=== PATIENT | female | born 1970 | race Caucasian/White ===

== ENCOUNTER 2016-09-12 05:38 | Inpatient (IN) | payer OTHER ==
[2016-09-12] MEDS ORDERED: Acetaminophen 500 MG Tab PO ONE (05:45)
[2016-09-12] MEDS ORDERED: cefOXitin 2 GM in Sodium Chloride 0.9% 50 ML IV ONE (06:00)
[2016-09-12] MEDS ORDERED: Dextrose 5%-Lactated Ringers 1,000 ML IV SCH (06:00)
[2016-09-12] MEDS ORDERED: Gabapentin 300 MG Cap PO ONE (06:00)
[2016-09-12] MEDS ORDERED: Scopolamine 1.5 MG Transdermal Patch TOP ONE (06:00)
[2016-09-12] MEDS ORDERED: Celecoxib 200 MG Cap PO ONE (06:00)
[2016-09-12] MEDS ORDERED: Acetaminophen 325 MG Tab PO ONE (06:00)
[2016-09-12] MEDS ORDERED: Pantoprazole 40 MG Vial IVPUSH ONE (06:00)
[2016-09-12] MEDS ORDERED: fentaNYL 250 MCG/5 ML SDV ONE ×2 (07:36→08:28)
[2016-09-12] MEDS ORDERED: Midazolam 1 MG/ML 2 ML SDV ONE (07:36)
[2016-09-12] MEDS ORDERED: ROPIVACAINE SCH ×4 (08:00)
[2016-09-12] MEDS ORDERED: FENTANYL PATCH ASK TOP SCH (08:00)
[2016-09-12] MEDS ORDERED: Lidocaine 2% 100 MG/5 ML Syringe IVPUSH ONE (08:00)
[2016-09-12] MEDS ORDERED: EPINEPHRINE SCH ×4 (08:00)
[2016-09-12] MEDS ORDERED: DEXAMETHASONE SCH ×4 (08:00)
[2016-09-12] MEDS ORDERED: SODIUM CHLORIDE 0.9% SCH ×4 (08:00)
[2016-09-12] MEDS ORDERED: Ketamine 500 MG/5 ML MDV IV ONE (08:00)
[2016-09-12] MEDS ORDERED: Succinylcholine/Normal Saline 200 MG/10 ML Syringe ONE (08:17)
[2016-09-12] MEDS ORDERED: Rocuronium 50 MG/5 ML Vial ONE ×2 (08:17→08:48)
[2016-09-12] MEDS ORDERED: Dexamethasone 4 MG/ML SDV ONE (08:17)
[2016-09-12] MEDS ORDERED: Propofol 200 MG/20 ML SDV ONE (08:17)
[2016-09-12] MEDS ORDERED: Ondansetron 4 MG/2 ML SDV ONE (08:17)
[2016-09-12] MEDS ORDERED: Neostigmine Methylsulfate 1 MG/ML 5 ML Syringe ONE (08:17)
[2016-09-12] MEDS ORDERED: Lactated Ringers 1,000 ML ONE (08:26)
[2016-09-12] MEDS ORDERED: Labetalol 20 MG/4 ML Syringe ONE (08:27)
[2016-09-12] MEDS: cefOXitin 2 GM Vial ONE ×2 (08:44→09:33)
[2016-09-12] MEDS ORDERED: hydrOXYzine HCl 50 MG/ML SDV IM ONE ×2 (10:35→12:08)
[2016-09-12] MEDS ORDERED: Insulin Aspart 100 Units/ML 3 ML Pen SUBCUT ONE (10:55)
[2016-09-12] MEDS ORDERED: fentaNYL 100 MCG/2 ML SDV IVPUSH ONE (10:59)
--- NOTE | 2016-09-12 11:08 | CR ---
Chest 1V Frontal INDICATION: PLACEMENT OF CENTRAL LINE FINDINGS: Comparison 11/07/2007. New left subclavian central line with tip near the cavoatrial junction. Shallow inspiration.
[2016-09-12] MEDS ORDERED: Meperidine PF 100 MG/ML Syringe IM ONE (12:07)
[2016-09-12] MEDS ORDERED: Naloxone 0.4 MG/ML SDV IV PRN (12:23)
[2016-09-12] MEDS ORDERED: SCOPOLAMINE PATCH CHECK TOP SCH (12:26)
[2016-09-12] MEDS ORDERED: Labetalol 20 MG/4 ML Syringe IVPUSH PRN (12:26)
[2016-09-12] MEDS ORDERED: Ondansetron 4 MG/2 ML SDV IVPUSH PRN (12:26)
[2016-09-12] MEDS ORDERED: hydrOXYzine HCl 50 MG/ML SDV IM PRN (12:26)
[2016-09-12] MEDS ORDERED: diphenhydrAMINE 50 MG/ML SDV IV PRN (12:38)
[2016-09-12] MEDS: HYDROmorphone/Normal Saline 15 MG/30 ML PCA IV SCH (12:39)
[2016-09-12] MEDS ORDERED: Metoclopramide 10 MG/2 ML SDV IV PRN (12:41)
[2016-09-12] MEDS: Lidocaine 0.4%/D5W 2 GM/500 ML BAG IV SCH (13:25)
[2016-09-12] MEDS: Gabapentin 250 MG/5 ML Solution ML 470 ML Bottle PO SCH ×2 (13:34→20:55)
[2016-09-12] MEDS ORDERED: Acetaminophen 325 MG Tab PO SCH (14:00)
[2016-09-12] MEDS: cefOXitin 2 GM in Sodium Chloride 0.9% 50 ML IV SCH ×2 (14:13→20:54)
[2016-09-12] MEDS: Acetaminophen Soln 650 MG/20.3 ML UD Cup PO SCH ×2 (14:27→20:55)
[2016-09-12] MEDS ORDERED: MVI, Adult with Vitamin K 10 ML, Thiamine 200 MG, Chromium/Copper/Mang/Selen/Zn 1 ML in... IV SCH ×4 (16:00)
[2016-09-12] MEDS: Insulin Aspart 100 Units/ML 3 ML Pen SUBCUT PRN ×2 (16:29→22:46)
[2016-09-12] MEDS: Heparin Sodium 5,000 Units/ML Vial SUBCUT SCH (18:01)
[2016-09-12] MEDS: Dextrose 5%-Lactated Ringers 1,000 ML IV SCH (20:58)
[2016-09-13] MEDS: Lidocaine 0.4%/D5W 2 GM/500 ML BAG IV SCH (01:27)
[2016-09-13] MEDS: cefOXitin 2 GM in Sodium Chloride 0.9% 50 ML IV SCH ×2 (01:27→08:38)
[2016-09-13] MEDS ORDERED: Iohexol 647 MG/ML 50 ML SDV PO SCH (02:30)
[2016-09-13] MEDS: HYDROmorphone/Normal Saline 15 MG/30 ML PCA IV SCH (03:12)
[2016-09-13] MEDS: Dextrose 5%-Lactated Ringers 1,000 ML IV SCH (04:09)
[2016-09-13] MEDS: Heparin Sodium 5,000 Units/ML Vial SUBCUT SCH (05:29)
[2016-09-13] MEDS ORDERED: Pantoprazole 40 MG Vial IVPUSH SCH (06:00)
[2016-09-13] MEDS: Gabapentin 250 MG/5 ML Solution ML 470 ML Bottle PO SCH ×2 (08:39→13:37)
[2016-09-13] MEDS: Acetaminophen Soln 650 MG/20.3 ML UD Cup PO SCH ×2 (08:40→13:38)
[2016-09-13] MEDS ORDERED: Dextrose 5%-Lactated Ringers 1,000 ML IV SCH (08:45)
--- NOTE | 2016-09-13 08:48 | CR ---
UGI wo KUB HISTORY: Eval RNY GBP FINDINGS: After administration of oral contrast, upright views were obtained. Post operative changes gastric bypass. Surgical drains in place. No evidence for leak. Contrast passes freely into proxima l small bowel loops. IMPRESSION: No evidence for leak or obstruction.
[2016-09-13] MEDS ORDERED: Hydrochlorothiazide/Triamterene 25-37.5 MG Cap PO SCH (09:00)
[2016-09-13] MEDS ORDERED: metFORMIN 500 MG Tab PO SCH (09:00)
[2016-09-13] MEDS ORDERED: Celecoxib 200 MG Cap PO SCH (09:00)
[2016-09-13] MEDS ORDERED: NORGESTIMATE PO SCH (09:00)
[2016-09-13] MEDS ORDERED: ETHINYL ESTRADIOL PO SCH (09:00)
[2016-09-13] MEDS ORDERED: Cyanocobalamin (Vitamin B12) 1,000 MCG/ML SDV IM ONE (10:00)
[2016-09-13] MEDS: Acetaminophen/oxyCODONE 325-5 MG Tab PO PRN ×2 (10:33→16:28)
[2016-09-13 11:24] VITALS: BP 142/79
[2016-09-13] MEDS ORDERED: Magnesium Hydroxide 400 MG/5 ML Susp 30 ML Cup PO ONE (14:55)
--- NOTE | 2016-09-14 12:40 | DISCH ---
ADMISSION DIAGNOSES: 1. Obesity. 2. Insomnia. 3. Hypertension. 4. Family history of alpha-1 antitrypsin deficiency. 5. Dysmenorrhea. 6. Dyslipidemia. 7. Depression. 8. Chronic migraine. 9. Chronic low back pain. 10.Maladaptive behaviors affecting medical condition. 11.Prediabetes. DISCHARGE DIAGNOSES: 1. Insertion of left subclavian triple lumen. 2. Laparoscopic gastric bypass surgery. 3. Liver biopsy. 4. Focal cauterization of the left lobe of liver. 5. Focal liver laceration, date of surgery 09/12/2016. 6. Morbid obesity. 7. Extreme hepatomegaly. 8. Inadequate peripheral vein access. HISTORY: Davin Hess is a 45-year-old female with longstanding history of morbid obesity and increasingly comorbidities. After preoperative evaluation and discussion of possible risks and possible complications, she wished to proceed with surgical procedure. HOSPITAL COURSE: Davin had her surgery on 09/13/2016. She had no operative complications. On postop day #1, her upper GI was normal. She continued with step 1 gastric bypass diet and advanced to step 2 gastric bypass diet without cereal. Her vital signs were good. Her activity was adequate. She requested to be discharged to home. She will be staying in [place]. PHYSICAL EXAMINATION: GENERAL: Davin Hess is a 45-year-old female. Height is 5 feet 4 inches. Weight is 245 pounds. VITAL SIGNS: TPR is 100.3, 112, 15. Blood pressure 142/79. HEENT: Negative. NECK: Supple. HEART: Regular rate and rhythm. LUNGS: Clear. ABDOMEN: Dressings dry and intact. SAEID drains x2, put out 190 operative day and on postop day one with a light pink serous drainage. The SAEID drains were discontinued, 4x4s were placed over SAEID drain sites and abdominal binder is on. EXTREMITIES: Without peripheral edema. DISPOSITION: Discharged to home. CONDITION: Stable and improving. FOLLOWUP APPOINTMENT: Natasha Galvin PA-C, on 09/21/2016 at 10:00 am. HOME MEDICATION: 1. Tylenol 650 mg p.o. t.i.d. liquid 100 mL. 2. Percocet 5/325 mg 1 to 2 every 4 hours p.r.n. pain #50. 3. Milk of Magnesia 30 mL, two were sent home with patient to take 1 p.o. daily if needed for constipation. Home medications are: 1. Metformin 500 mg p.o. b.i.d. 2. Dyazide 37.5/25, 2 capsules p.o. daily. 3. Zocor 20 mg at bedtime, hold until first appointment. 4. Ethinyl estradiol and norgestimate one tablet p.o. daily. 5. Lunesta 2 mg p.o. daily. DIET: Step-2 gastric bypass diet with no cereal. May start protein shakes, drink 8 to 10 glasses of water a day. ACTIVITY: As tolerated. No lifting greater than 10 pounds. Driving: Do not drive on pain medication. Shower/Bathing: May shower. Keep operative site clean and dry. Wear abdominal binder for 2 weeks and then as tolerated. Notify provider if any fever, increased pain, swelling, redness, drainage, nausea, or vomiting. SPECIAL INSTRUCTION: Use incentive spirometer 10 times every hour while awake for 2 weeks. Start taking chewable multivitamin twice daily and vitamin B12 1000 mcg sublingual once daily. Keep a record of fluid and protein intake and bring to clinic appointments. Check blood sugars once in the morning before eating and bring results to clinic appointments.
--- NOTE | 2016-09-14 14:46 | OR ---
DATE OF PROCEDURE: 09/12/2016 PREOPERATIVE DIAGNOSES: 1. Morbid obesity. 2. Inadequate peripheral venous access. POSTOPERATIVE DIAGNOSES: 1. Morbid obesity. 2. Extreme hepatomegaly with resultant focal liver laceration due to necessity to retract the liver. 3. Inadequate peripheral venous access. OPERATIVE PROCEDURE: 1. Bilateral transverse abdominis plane blocks (70361). 2. Insertion of left subclavian vein triple-lumen catheter (85346). 3. Diagnostic laparoscopy with. a. Laparoscopic Obdulia-en-Y gastric bypass with long limb gastroenterostomy (93470). b. Lisandro-Cut needle liver biopsy (86727). c. Cauterization and suture of focal liver laceration, left lobe of the liver (41939). ANESTHESIA: General. INDICATION FOR PROCEDURE: This is a 45-year-old female presenting with longstanding morbid obesity and increasingly significant comorbidities. The plan is to proceed with diagnostic laparoscopy with a gastric bypass. Potential risks of procedure including bleeding, infection, leaks from various GI tract closures, problems with bowel obstruction over time as well as possibility of cardiopulmonary, septic, or hemorrhagic complications leading to were discussed, and the patient wishes to proceed. Additionally, the patient has very limited peripheral venous access and a central line will be placed for venous access perioperatively. The potential risks of that including bleeding, infection, pneumothorax and such were likewise reviewed, and she wishes to proceed. DETAILS OF PROCEDURE: The patient was taken to the operating room and placed in a supine position. After general endotracheal anesthesia was induced, the upper chest and neck areas were prepped and draped. The left subclavian vein was cannulated, guidewire passed over the guidewire, a triple-lumen catheter was positioned. Good in and outflow was noted. Ports were flush with heparinized saline and the catheter sutured to skin with some 3-0 silk stitch. Dressing was applied. Subsequent chest x-ray showed no complications and good catheter position. The patient was now placed in a lithotomy position. Kauffman catheter was inserted. Bilateral transverse abdominis plane blocks were then placed using ultrasound guidance in subcostal position and included the combination of ropivacaine, dexamethasone, epinephrine, and sodium chloride with 40 mL being injected on each side with continued ongoing ultrasound guidance. The abdomen was then prepped and draped and the gastrointestinal balloon catheter then positioned 15 cm inferior and 5 cm to the left of the xiphoid, a transverse incision was made. The peritoneal cavity entered under direct vision with an Optiview trocar inflated to 15 mmHg pressure with CO2. Laparoscope was then reinserted. No underlying trocar insertion site injuries were seen. Following this, 5 additional trocars were placed across the upper mid abdomen and general exploration undertaken. The patient noted to have a quite striking hepatomegaly with the liver coming down almost to the level of the umbilicus on the left side. The liver was engorged and quite extremely fatty infiltrated. There were no signs of cirrhosis, however, and there was no evidence of portal hypertension. The overall findings would be typical for an obese patient with diabetes. The patient also does have one of the genetic sub-types of alpha-1 antitrypsin deficiency, and after the biopsies were obtained from the left lobe of the liver those were sent for histologic evaluation with a notation regarding the patient's history provided on the pathology request. Minimal bleeding from the biopsy sites was controlled with electrocautery. At this point, the omentum was divided in the midline up to the level of the transverse colon. This allowed identification of small bowel at the ligament of Treitz. Small bowel was then traced out 200 cm distal to that point, was divided transversely with a SINAN stapler. Small bowel was then traced out additional 200 cm where the [id number] enteroenterostomy was accomplished with internal firing of the Endo-SINAN 60 mm stapler, common opening then closed transversely with the same stapler, angles anastomosed, and mesenteric defect approximated with some 0 Ethibond stitch along with fibrin sealant. The divided end of the Obdulia limb was then from the mesentery for a few centimeters, which allowed an antecolic position of the Obdulia limb up to the level of the esophagogastric junction without tension. The liver was then retracted anteriorly and this required a fair bit of force in order to obtain adequate exposure of the area of the esophagogastric junction. This was eventually accomplished, although there was a focal tear of the liver, more or less on the inferior lateral aspect of the left lobe. This was not associated with significant bleeding and appeared to probably tear along a division line as would typically occur. At this point, the gastroesophageal junction was examined. No hiatal hernia was seen. The balloon catheter was inflated to 15 mL and pulled up snugly against the EG junction. The gastric wall over the apex of the balloon was then marked with electrocautery and balloon catheter deflated and withdrawn. The lesser omental tissue adjacent to gastric cardia was then incised allowing dissection behind the stomach at that level. Pouch formation was initiated with a transverse firing of the SINAN stapler at the level of the cauterized leander in the gastric cardia. Pouch was then completed with 3 additional firings of the SINAN staplers up to and through the angle of His. Upon completion of the pouch, both staple lines were noted to be intact. The anvil of a 25 mm EEA stapler was attached to [place] sump type tube. The latter was then brought down through the mouth and taken out through a small opening in the gastric pouch, allowing the anvil likewise to pulled down into the gastric pouch. The divided end of the Obdulia limb was then opened and the main body of the EEA stapler passed several centimeters into the lumen of the small bowel, brought up, the anvil united with it, thus creating the gastrojejunostomy. Upon removal of the stapler, double donuts of mucosa were noted within it, small bowel was closed off with a vascular staple line. Gastrojejunostomy was reinforced with some 3-0 Vicryl seromuscular stitch along with fibrin sealant. Leak test was accomplished with injection of 120 mL of air in the gastric pouch while submerged with an antibiotic-containing saline solution. No leaks were identified and the drains were then placed, both on the subcostal area adjacent to the gastrojejunostomy. Upon removal of the liver stitch, the tear in the liver was inspected. This was not noted with any significant bleeding or bile leak at this time. Nonetheless, it was felt best to secure this. It was initially cauterized and then 2 [id number] stitches of 2-0 Vicryl stitch were placed opposing the edges of the liver. At that point, no further problems noted. One of the drains was underneath that area as well which will drain that area should there be any postoperative bile leak. Apart from that, no further problems noted. Trocars were removed. The peritoneal cavity deflated. Incisions were closed with 6-0 Vicryl skin stitch and drains were affixed with some 2-0 silk stitch. The patient was taken to the recovery room in satisfactory condition. Haim Cardenas MD /[id number]
== END 2016-09-13 16:58 | disposition home or self-care (01) | DRG 620 ==
LOC: JP.SDS 05:38 → JP.MS 05:38 → JP.2SS 11:50 → EDSTATUS 12:45
PROVIDERS: ADMIT Surgery; ATTEND Surgery
PROC: 0D164ZA Bypass Stomach to Jejunum, Percutaneous Endoscopic Approach (ICD-10-PCS; principal; 2016-09-12)
PROC: 0FB24ZX Excision of Left Lobe Liver, Percutaneous Endoscopic Approach, Diagnostic (ICD-10-PCS; principal; 2016-09-12)
PROC: 3E0T3BZ Introduction of Anesthetic Agent into Peripheral Nerves and Plexi, Percutaneous Approach (ICD-10-PCS; principal; 2016-09-12)
PROC: 02HV33Z Insertion of Infusion Device into Superior Vena Cava, Percutaneous Approach (ICD-10-PCS; principal; 2016-09-12)
DX: E66.01 Morbid (severe) obesity due to excess calories (principal); K91.72 Accidental puncture and laceration of a digestive system organ or structure during other procedure; Z68.41 Body mass index [BMI] 40.0-44.9, adult; I10 Essential (primary) hypertension; E78.5 Hyperlipidemia, unspecified; G47.30 Sleep apnea, unspecified; E11.9 Type 2 diabetes mellitus without complications; Z79.84 Long term (current) use of oral hypoglycemic drugs; R16.0 Hepatomegaly, not elsewhere classified; K76.0 Fatty (change of) liver, not elsewhere classified; Z88.1 Allergy status to other antibiotic agents; Z88.5 Allergy status to narcotic agent
CPT/HCPCS: 36415; 71010; 71010-26; 74240; 74240-26; 82962; 83036; 86850; 86900; 86901; 88307; A9270-GY; C9113; J0694; J1100; J1170; J1200; J1642; J1644; J2001; J2175; J2250; J2405; J2704; J3010; J3410; J3411; J3420; J7030; J7040; J7042; J7050; J7120; Q9967